=== PATIENT | male | born 1995 | race Caucasian/White ===

== ENCOUNTER 2017-10-14 20:21 | Emergency (ER) | payer OTHER ==
[~2017-10-14] VITALS: Ht 177.8 cm; Wt 77.1 kg
[2017-10-14] MEDS ORDERED: TRIAMCINOLONE A15 G1 TOP (22:39)
[2017-10-14] MEDS ORDERED: NYSTATIN15 G1 TOP (22:39)
[2017-10-14] MEDS ORDERED: PREDNISONE10 M2 PO (22:39)
--- NOTE | 2017-10-14 22:42 | ED GENERAL ADULT ---
History of Present Illness General Chief Complaint: General Adult Stated Complaint: "POSION ALCIDES ALL OVER BODY" Source: patient Exam Limitations: no limitations Vital Signs & Intake/Output Vital Signs & Intake/Output Vital Signs Date Time Temp Pulse Resp B/P B/P Pulse O2 O2 Flow FiO2 Mean Ox Delivery Rate 10/14 2243 90 18 111/77 99 Room Air 10/14 2210 Room Air 10/15 2027 97.1 101 18 136/89 98 Room Air Allergies Coded Allergies: No Known Allergies (10/14/17) Reconcile Medications Nystatin 100,000 UNIT/GRAM CREAM..G. 1 ANGELLA TOP TID tinea apply to affected area(s) Prednisone 10 MG TABLET 1 TAB PO DAILY poison alcides 6 tabs daily on days 1-7 4 tabs daily on days 8-14 2 tabs daily on days 15-21 Triamcinolone Acetonide 0.1 % CREAM..G. 1 DOSE TOP DAILY poison alcides Triage Note: PT TO TRIAGE WITH POISON ALCIDES LIKE RASH ALL OVER BODY SINCE YESTERDAY. Triage Nurses Notes Reviewed? yes Onset: Gradual Duration: day(s): Timing: constant HPI: 22-year-old otherwise healthy male presenting with a full body rash since yesterday. Patient states that he was doing yard work early in the morning yesterday, did not notice any poison alcides in the yard while he was working. Last night developed a rash similar to prior poison alcides that he's had. Has a. Rash to his bilateral upper extremities, genitals, and face. Has been applying rubbing alcohol to the rash without relief. Patient also states that he has a history of tinea corporis to his back, which is currently flaring up after working in the heat doing yard work yesterday. Denies fevers or any known allergies. (Paulette Ramirez) Past History Travel History Traveled to [place] past 21 day No Medical History Any Pertinent Medical History? 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 No (Paulette Ramirez) Review of Systems Review of Systems Constitutional: Reports: no symptoms. EENTM: Reports: no symptoms. Respiratory: Reports: no symptoms. Cardiovascular: Reports: no symptoms. GI: Reports: no symptoms. Genitourinary: Reports: no symptoms. Musculoskeletal: Reports: no symptoms. Skin: Reports: see HPI. Neurological/Psychological: Reports: no symptoms. Hematologic/Endocrine: Reports: no symptoms. Immunologic/Allergic: Reports: no symptoms. All Other Systems: Reviewed and Negative (Paulette Ramirez) Physical Exam Physical Exam General Appearance: well developed/nourished, no apparent distress, alert, awake , comfortable Head: atraumatic, normal appearance Eyes: Bilateral: normal appearance. Ears, Nose, Throat: trace erythema to the forehead and bilateral maxillary areas , no obvious vesicles or lesions, no occular invovlement Neck: normal inspection Respiratory: normal breath sounds, lungs clear Cardiovascular: regular rate/rhythm Gastrointestinal: soft, non-tender Back: scaling annular lesions with erythematous periphery and hypopigmented centers to the back Extremities: vesicles with crusting on an erythematous base to bilateral upper extremities Neurologic/Psych: awake, alert, oriented x 3, normal gait Skin: warm/dry Core Measures ACS in differential dx? No CVA/TIA Diagnosis: No Sepsis Present: No Sepsis Focused Exam Completed? No (Paulette Ramirez) Progress Differential Diagnoses I considered the following diagnoses in my evaluation of the patient: [Plant dermatitis versus tinea corporis versus contact dermatitis versus allergic reaction versus viral exanthem] Plan of Care: Rx topical triamcinolone and oral prednisone for Plant dermatitis. Instructed not to use triamcinolone on the face or genitals. Rx nystatin cream for tinea corporis. Counseled on supportive care and strict return precautions. Initial ED EKG: none (Paulette Ramirez) Departure Departure Disposition: HOME OR SELF CARE Condition: Stable Clinical Impression Primary Impression: Plant dermatitis Secondary Impressions: Tinea corporis Referrals: Patient Has No Primary Care Dr (PCP/Family) Additional Instructions: Apply triamcinolone and nystatin cream topically as prescribed. Do not use triamcinolone on the face or genitals. Use oral prednisone as prescribed. You must finish the entire course of this medication and do not stop abruptly. Follow-up with a primary care provider for reevaluation and to establish care. Return to the emergency department for any normal worsening symptoms. Departure Forms: Customer Survey General Discharge Information Prescriptions: Current Visit Scripts Nystatin 1 ANGELLA TOP TID #15 GM apply to affected area(s) Triamcinolone Acetonide 1 DOSE TOP DAILY #1 TUBE Prednisone 1 TAB PO DAILY #84 TAB 6 tabs daily on days 1-7 4 tabs daily on days 8-14 2 tabs daily on days 15-21 (Paulette Ramirez) PA/BEEF PLUCK TRIMMER Co-Sign Statement Statement: ED Attending supervision documentation- I saw and evaluated the patient. I have also reviewed all the pertinent lab results and diagnostic results. I agree with the findings and the plan of care as documented in the PA's/BEEF PLUCK TRIMMER's documentation. x I have reviewed the ED Record and agree with the PA's/BEEF PLUCK TRIMMER's documentation. [] Additions or exceptions (if any) to the PAs/BEEF PLUCK TRIMMER's note and plan are summarized below: [] (Viola MEDLEY,Brian) Critical Care Note Critical Care Note Critical Care Time: non-applicable (Paulette Ramirez)
[2017-10-14 22:43] VITALS: BP 111/77
== END 2017-10-14 22:45 ==
LOC: ERH 20:21
DX: L23.7 Allergic contact dermatitis due to plants, except food (principal); B35.4 Tinea corporis